=== PATIENT | female | born 1960 | race Caucasian/White ===

== ENCOUNTER 2018-07-20 03:07 | Inpatient (IN) | payer MEDICARE ==
[~2018-07-20] VITALS: Ht 157.5 cm; Wt 64.9 kg
[2018-07-20] VITALS (22 sets, daily range): BP systolic 70–120; BP diastolic 44–74
[~2018-07-20 03:07] MED LIST: ACET-2178 MT; AMLO10TA80 MT; ASPI-1158 MT; CLON0.1T MT; DIPH25CA83 MT; MEGE40TA27 MT; NITR-87 PO; PROT40 MT; SUCR1TAB30 MT
[2018-07-20] MEDS ORDERED: SODIUM CHLORIDE 0.9% 1000ML BAG (SEPSIS BOLUS) IV ONE (03:15)
[2018-07-20] MEDS ORDERED: VANCOMYCIN 1 G PREMIX 200 ML IV ONE (03:15)
[2018-07-20] MEDS ORDERED: PIPERACILLIN/TAZ 3.375G PREMIX 50 ML IV ONE (03:15)
[2018-07-20 04:02] LABS: BG BASE EXCESS -14.4 mmol/L (-2.0-2.0); BG BILEVEL POS AIRWAY PRESSURE 15/5; BG CARBOXYHEMOGLOBIN 0.7 % (0.5-1.5); BG DEOXYHEMOGLOBIN 1.5 % (0.0-5.0); BG FRACTION INSPIRED OXYGEN 75; BG HCO3 ACT 10.2 mmol/L (22.0-26.0); BG METHEMOGLOBIN 0.3 % (0.0-1.5); BG OXYGEN SATURATION 98.5 % (92.0-98.5); BG OXYHEMOGLOBIN 97.5 % (94.0-97.0); BG PCO2 20.6 mmHg (35.0-45.0); BG PH 7.312 (7.350-7.450); BG PO2 117.3 mmHg (75.0-100.0); BG SAMPLE SITE RIGHT RADIAL; BG VENT MODE MASK - BIPAP
[2018-07-20] MEDS ORDERED: KETOROLAC 15MG/ML VIAL IV ONE (04:15)
[2018-07-20 04:26] LABS: HEMATOCRIT. 27.1 % (36.0-48.0); HEMOGLOBIN. 8.3 g/dL (12.0-16.0); MEAN CORPUSCULAR HEMOGLOBIN 27.1 pg (28.0-32.0); MEAN PLATELET VOLUME 8.9 fl (7.4-10.4); PLATELET 620 x1000/uL (130-400); RED BLOOD CELL COUNT 3.08 mill/uL (4.2-5.4); RED CELL DISTRIBUTION WIDTH 16.7 % (11.6-14.6)
[2018-07-20 04:33] LABS: CHLORIDE 96 mEq/L (98-107)
[2018-07-20 04:35] LABS: PROTHROMBIN TIME 10.5 sec (9.1-11.1)
[2018-07-20] MEDS ORDERED: DEXTROSE 50% WATER 50ML SYRINGE IV ONE (04:45)
[2018-07-20] MEDS ORDERED: SODIUM POLYSTYRENE SULFONATE 15 G/60 ML BOT PO ONE (04:45)
[2018-07-20] MEDS ORDERED: SODIUM BICARBONATE 8.4% 1 MEQ/ML 50ML SYR IV ONE (04:45)
[2018-07-20] MEDS ORDERED: INSULIN REGULAR (HUMULIN R) 300UNITS/3ML IV ONE (04:45)
[2018-07-20] MEDS ORDERED: ALBUTEROL (0.083%) 2.5MG/3ML NEB HHN ONE (04:45)
[2018-07-20] MEDS ORDERED: ALBUTEROL (0.5%) 2.5MG/0.5ML NEB HHN ONE (04:58)
[2018-07-20 05:36] LABS: PLATELET ESTIMATE INCREASED
[2018-07-20] MEDS ORDERED: NOREPINEPHRINE 4 MG in DEXT 5% WATER 246 ML IV ONE ×4 (05:45)
[2018-07-20] MEDS: DEXT 5%/0.45% NACL 1000ML 1,000 ML IV SCH ×2 (07:08→20:55)
[2018-07-20 07:31] LABS: CLARITY URINE TURBID (CLEAR); COLOR URINE ORANGE (YELLOW); KETONES URINE NEGATIVE (NEGATIVE); LEUKOCYTE ESTERASE URINE 3+ (NEGATIVE); NITRITE URINE NEGATIVE (NEGATIVE); OCCULT BLOOD URINE 3+ (NEGATIVE); PH URINE 6.5 (4.5-8.0); PROTEIN URINE 2+ (NEGATIVE); SPECIFIC GRAVITY URINE 1.011 (1.005-1.030); UROBILINOGEN URINE 0.2 E.U./dL (0.2-1.0)
[2018-07-20] MEDS ORDERED: LIDOCAINE HCL 1% 10 MG/ML 10ML VIAL ONE (11:01)
[2018-07-20] MEDS ORDERED: PIPERACILLIN/TAZ 2.25G PREMIX 50 ML IV NR (12:00)
[2018-07-20] MEDS: MIDODRINE HCL 5MG TABLET PO SCH (14:45)
[2018-07-20] MEDS ORDERED: ONDANSETRON HCL 4MG/2ML INJ IV PRN (17:00)
[2018-07-20] MEDS ORDERED: NOREPINEPHRINE 4 MG in DEXT 5% WATER 246 ML IV PRN (19:00)
[2018-07-20] MEDS: NOREPINEPHRINE 4 MG in DEXT 5% WATER 246 ML IV PRN (19:01)
[2018-07-20] MEDS ORDERED: SODIUM CHLORIDE 0.9% 1,000 ML IV NR (19:08)
[2018-07-20] MEDS: PIPERACILLIN/TAZ 2.25G PREMIX 50 ML IV SCH (21:46)
[2018-07-21] VITALS (142 sets, daily range): BP systolic 72–134; BP diastolic 41–75
[2018-07-21] MEDS: DEXT 5%/0.45% NACL 1000ML 1,000 ML IV SCH (03:08)
[2018-07-21] MEDS: PIPERACILLIN/TAZ 2.25G PREMIX 50 ML IV SCH ×2 (05:03→11:25)
[2018-07-21] MEDS: NOREPINEPHRINE 4 MG in DEXT 5% WATER 246 ML IV PRN ×2 (05:32→16:30)
[2018-07-21 06:24] LABS: HEMATOCRIT. 29.4 % (36.0-48.0); HEMOGLOBIN. 9.1 g/dL (12.0-16.0); MEAN CORPUSCULAR HEMOGLOBIN 27.4 pg (28.0-32.0); MEAN CORPUSCULAR VOLUME 88.6 fL (81.0-99.0); MEAN PLATELET VOLUME 9.2 fl (7.4-10.4); PLATELET 595 x1000/uL (130-400); RED BLOOD CELL COUNT 3.32 mill/uL (4.2-5.4); RED CELL DISTRIBUTION WIDTH 16.7 % (11.6-14.6)
[2018-07-21 06:48] LABS: CHLORIDE 96 mEq/L (98-107)
[2018-07-21] MEDS ORDERED: DEXTROSE 50% WATER 50ML SYRINGE IV PRN (07:15)
[2018-07-21] MEDS ORDERED: SODIUM BICARBONATE 8.4% 1 MEQ/ML 50ML SYR IV SCH (07:20)
[2018-07-21 07:39] LABS: PLATELET ESTIMATE INCREASED
[2018-07-21] MEDS ORDERED: SODIUM POLYSTYRENE SULFONATE 15 G/60 ML BOT PR SCH (08:30)
[2018-07-21 09:32] LABS: BG BASE EXCESS -7.5 mmol/L (-2.0-2.0); BG BILEVEL POS AIRWAY PRESSURE 15/5; BG CARBOXYHEMOGLOBIN 0.5 % (0.5-1.5); BG DEOXYHEMOGLOBIN 8.5 % (0.0-5.0); BG HCO3 ACT 16.7 mmol/L (22.0-26.0); BG METHEMOGLOBIN 0.3 % (0.0-1.5); BG OXYGEN SATURATION 91.4 % (92.0-98.5); BG OXYHEMOGLOBIN 90.7 % (94.0-97.0); BG PCO2 29.1 mmHg (35.0-45.0); BG PH 7.377 (7.350-7.450); BG PO2 57.7 mmHg (75.0-100.0); BG SAMPLE SITE RIGHT RADIAL; BG TOTAL HEMOGLOBIN 9.3 g/dL (12.0-18.0); BG VENT MODE MASK - BIPAP; BG VENT RATE 14 set
[2018-07-21] MEDS ORDERED: VECURONIUM BROMIDE 10 MG/VIAL IV ONE (09:45)
[2018-07-21] MEDS ORDERED: NORMAL SALINE 0.9% 10 ML SYR ONE (09:45)
[2018-07-21] MEDS ORDERED: ETOMIDATE 2MG/ML 10ML VIAL IV ONE (09:45)
[2018-07-21] MEDS ORDERED: IPRATROPIUM/ALBUTEROL 0.5-3(2.5)MG/3ML NEB HHN PRN (09:45)
[2018-07-21] MEDS ORDERED: PROPOFOL 10MG/ML 100ML 100 ML IV PRN (09:45)
[2018-07-21] MEDS: PANTOPRAZOLE SODIUM 40 MG/VIAL IV SCH (10:15)
[2018-07-21 10:35] LABS: BG BASE EXCESS -6.8 mmol/L (-2.0-2.0); BG CARBOXYHEMOGLOBIN 0.8 % (0.5-1.5); BG DEOXYHEMOGLOBIN 0.2 % (0.0-5.0); BG METHEMOGLOBIN 0.3 % (0.0-1.5); BG OXYGEN SATURATION 99.8 % (92.0-98.5); BG OXYHEMOGLOBIN 98.7 % (94.0-97.0); BG PCO2 33.3 mmHg (35.0-45.0); BG PO2 214.2 mmHg (75.0-100.0); BG SAMPLE SITE RIGHT RADIAL; BG TIDAL VOLUME(mL) 500 mL; BG TOTAL HEMOGLOBIN 9.4 g/dL (12.0-18.0); BG VENT MODE VENT - A/C; BG VENT RATE 16 set
[2018-07-21] MEDS: IPRATROPIUM/ALBUTEROL 0.5-3(2.5)MG/3ML NEB HHN SCH ×3 (11:00→19:55)
[2018-07-21] MEDS: SODIUM BICARBONATE 100 MEQ in SODIUM CHLORIDE 0.45% 1,000 ML IV SCH (11:25)
[2018-07-21] MEDS: BLOOD SUGAR DIAGNOSTIC STRIP TEST SCH ×3 (11:30→21:00)
[2018-07-21 11:56] LABS: SODIUM URINE RANDOM 35 mEq/L
[2018-07-21] MEDS: INSULIN LISPRO 100 UNITS/ML SUBCUT SCH ×3 (14:03→22:07)
[2018-07-21] MEDS: MIDODRINE HCL 5MG TABLET PO SCH ×2 (14:15→17:18)
[2018-07-21] MEDS ORDERED: VANCOMYCIN 500 MG PREMIX 100 ML IV SCH (15:00)
[2018-07-21] MEDS: ACETYLCYSTEINE 100MG/ML 10% VIAL 4ML INH SCH (15:20)
[2018-07-21] MEDS ORDERED: AMIKACIN SULFATE 500 MG in SODIUM CHLORIDE 0.9% 100 ML IV NR (17:00)
[2018-07-21] MEDS: MEROPENEM 1,000 MG in SODIUM CHLORIDE 0.9% 100 ML IV SCH (17:18)
[2018-07-21] MEDS: VANCOMYCIN HCL 1000 MG/20 ML ORAL PO SCH (17:27)
[2018-07-21] MEDS ORDERED: VANCOMYCIN 1 G PREMIX 200 ML IV NR (17:30)
[2018-07-21] MEDS: PROPOFOL 10MG/ML 100ML 100 ML IV PRN (20:27)
[2018-07-22] VITALS (89 sets, daily range): BP systolic 71–116; BP diastolic 45–67
[2018-07-22] MEDS: ACETYLCYSTEINE 100MG/ML 10% VIAL 4ML INH SCH ×2 (00:01→12:53)
[2018-07-22] MEDS: IPRATROPIUM/ALBUTEROL 0.5-3(2.5)MG/3ML NEB HHN SCH ×5 (00:01→20:40)
[2018-07-22] MEDS: VANCOMYCIN HCL 1000 MG/20 ML ORAL PO SCH ×4 (00:27→17:02)
[2018-07-22] MEDS: SODIUM BICARBONATE 100 MEQ in SODIUM CHLORIDE 0.45% 1,000 ML IV SCH ×2 (00:28→17:01)
[2018-07-22] MEDS: PROPOFOL 10MG/ML 100ML 100 ML IV PRN ×3 (03:21→22:04)
[2018-07-22] MEDS: NOREPINEPHRINE 4 MG in DEXT 5% WATER 246 ML IV PRN ×3 (03:22→23:14)
[2018-07-22 05:37] LABS: HEMATOCRIT. 25.6 % (36.0-48.0); HEMOGLOBIN. 8.2 g/dL (12.0-16.0); MEAN CORPUSCULAR HEMOGLOBIN 27.3 pg (28.0-32.0); MEAN CORPUSCULAR VOLUME 84.9 fL (81.0-99.0); MEAN PLATELET VOLUME 9.2 fl (7.4-10.4); PLATELET 372 x1000/uL (130-400); RED BLOOD CELL COUNT 3.02 mill/uL (4.2-5.4); RED CELL DISTRIBUTION WIDTH 16.4 % (11.6-14.6)
[2018-07-22 05:57] LABS: PHOSPHORUS 1.8 mg/dL (2.5-4.9)
[2018-07-22] MEDS: INSULIN LISPRO 100 UNITS/ML SUBCUT SCH ×4 (06:06→22:03)
[2018-07-22] MEDS: BLOOD SUGAR DIAGNOSTIC STRIP TEST SCH ×4 (06:06→21:00)
[2018-07-22 07:16] LABS: PLATELET ESTIMATE NORMAL
[2018-07-22] MEDS ORDERED: SODIUM PHOS,M-BASIC-D-BASIC 15 MM in DEXT 5% WATER 245 ML IV NR (08:15)
[2018-07-22 08:39] LABS: BG BASE EXCESS -8.6 mmol/L (-2.0-2.0); BG CARBOXYHEMOGLOBIN 1.2 % (0.5-1.5); BG DEOXYHEMOGLOBIN 10.8 % (0.0-5.0); BG FRACTION INSPIRED OXYGEN 50; BG HCO3 ACT 15.2 mmol/L (22.0-26.0); BG METHEMOGLOBIN 0.2 % (0.0-1.5); BG OXYHEMOGLOBIN 87.8 % (94.0-97.0); BG PCO2 25.4 mmHg (35.0-45.0); BG PH 7.395 (7.350-7.450); BG PO2 53.7 mmHg (75.0-100.0); BG SAMPLE SITE RIGHT RADIAL; BG TIDAL VOLUME(mL) 500 mL; BG TOTAL HEMOGLOBIN 7.7 g/dL (12.0-18.0); BG VENT MODE VENT - A/C; BG VENT RATE 16 set
[2018-07-22] MEDS: MEROPENEM 1,000 MG in SODIUM CHLORIDE 0.9% 100 ML IV SCH (08:52)
[2018-07-22] MEDS: PANTOPRAZOLE SODIUM 40 MG/VIAL IV SCH (08:53)
[2018-07-22] MEDS: MIDODRINE HCL 5MG TABLET PO SCH ×3 (08:54→17:01)
[2018-07-22] MEDS ORDERED: PROPOFOL 10MG/ML 100ML 100 ML IV PRN ×2 (12:27→15:45)
[2018-07-23] VITALS (93 sets, daily range): BP systolic 67–142; BP diastolic 41–66
[2018-07-23] MEDS: IPRATROPIUM/ALBUTEROL 0.5-3(2.5)MG/3ML NEB HHN SCH ×6 (00:13→20:22)
[2018-07-23] MEDS: ACETYLCYSTEINE 100MG/ML 10% VIAL 4ML INH SCH ×3 (00:14→16:03)
[2018-07-23] MEDS: VANCOMYCIN HCL 1000 MG/20 ML ORAL PO SCH ×4 (00:18→17:56)
[2018-07-23] MEDS: ACETAMINOPHEN 325MG TABLET PO PRN ×2 (00:39→04:49)
[2018-07-23 05:53] LABS: BG BASE EXCESS -3.9 mmol/L (-2.0-2.0); BG CARBOXYHEMOGLOBIN 1.1 % (0.5-1.5); BG DEOXYHEMOGLOBIN 11.9 % (0.0-5.0); BG FRACTION INSPIRED OXYGEN 100; BG HCO3 ACT 20.1 mmol/L (22.0-26.0); BG METHEMOGLOBIN 0.3 % (0.0-1.5); BG OXYGEN SATURATION 87.9 % (92.0-98.5); BG OXYHEMOGLOBIN 86.7 % (94.0-97.0); BG PCO2 31.7 mmHg (35.0-45.0); BG PH 7.419 (7.350-7.450); BG PO2 52.2 mmHg (75.0-100.0); BG SAMPLE SITE RIGHT RADIAL; BG TIDAL VOLUME(mL) 500 mL; BG TOTAL HEMOGLOBIN 8.2 g/dL (12.0-18.0); BG VENT MODE VENT - A/C; BG VENT RATE 16 set
[2018-07-23 06:01] LABS: HEMATOCRIT. 25.3 % (36.0-48.0); HEMOGLOBIN. 8.2 g/dL (12.0-16.0); MEAN CORPUSCULAR HEMOGLOBIN 27.4 pg (28.0-32.0); MEAN CORPUSCULAR VOLUME 84.9 fL (81.0-99.0); MEAN PLATELET VOLUME 9.4 fl (7.4-10.4); PLATELET 292 x1000/uL (130-400); RED BLOOD CELL COUNT 2.98 mill/uL (4.2-5.4); RED CELL DISTRIBUTION WIDTH 16.7 % (11.6-14.6)
[2018-07-23] MEDS: BLOOD SUGAR DIAGNOSTIC STRIP TEST SCH ×3 (06:27→17:56)
[2018-07-23] MEDS: SODIUM BICARBONATE 100 MEQ in SODIUM CHLORIDE 0.45% 1,000 ML IV SCH (06:31)
[2018-07-23] MEDS: INSULIN LISPRO 100 UNITS/ML SUBCUT SCH ×3 (06:33→17:56)
[2018-07-23 06:34] LABS: PHOSPHORUS 2.9 mg/dL (2.5-4.9)
[2018-07-23 08:18] LABS: PLATELET ESTIMATE NORMAL
[2018-07-23] MEDS: PANTOPRAZOLE SODIUM 40 MG/VIAL IV SCH (09:05)
[2018-07-23] MEDS: MIDODRINE HCL 5MG TABLET PO SCH ×3 (09:05→17:55)
[2018-07-23] MEDS: MEROPENEM 1,000 MG in SODIUM CHLORIDE 0.9% 100 ML IV SCH (09:05)
[2018-07-23] MEDS: PROPOFOL 10MG/ML 100ML 100 ML IV PRN ×2 (09:05→19:03)
[2018-07-23] MEDS: NOREPINEPHRINE 4 MG in DEXT 5% WATER 246 ML IV PRN ×2 (15:14→23:20)
[2018-07-23 15:20] LABS: BG BASE EXCESS -5.1 mmol/L (-2.0-2.0); BG FRACTION INSPIRED OXYGEN 100; BG HCO3 ACT 17.6 mmol/L (22.0-26.0); BG METHEMOGLOBIN 0.3 % (0.0-1.5); BG OXYHEMOGLOBIN 97.7 % (94.0-97.0); BG PCO2 24.5 mmHg (35.0-45.0); BG PH 7.474 (7.350-7.450); BG PO2 142.6 mmHg (75.0-100.0); BG SAMPLE SITE LEFT RADIAL; BG TIDAL VOLUME(mL) 500 mL; BG TOTAL HEMOGLOBIN 8.1 g/dL (12.0-18.0); BG VENT MODE VENT - A/C; BG VENT RATE 16 set
[2018-07-24] VITALS (88 sets, daily range): BP systolic 78–146; BP diastolic 47–94
[2018-07-24] MEDS: VANCOMYCIN HCL 1000 MG/20 ML ORAL PO SCH ×5 (00:22→23:57)
[2018-07-24] MEDS: BLOOD SUGAR DIAGNOSTIC STRIP TEST SCH ×5 (00:22→23:57)
[2018-07-24] MEDS: INSULIN LISPRO 100 UNITS/ML SUBCUT SCH ×4 (00:25→17:44)
[2018-07-24] MEDS: ACETYLCYSTEINE 100MG/ML 10% VIAL 4ML INH SCH ×3 (00:28→15:46)
[2018-07-24] MEDS: IPRATROPIUM/ALBUTEROL 0.5-3(2.5)MG/3ML NEB HHN SCH ×5 (00:28→20:32)
[2018-07-24] MEDS: PROPOFOL 10MG/ML 100ML 100 ML IV PRN ×2 (04:38→15:27)
[2018-07-24 05:34] LABS: HEMOGLOBIN. 7.8 g/dL (12.0-16.0); MEAN CORPUSCULAR HEMOGLOBIN 27.4 pg (28.0-32.0); MEAN PLATELET VOLUME 9.3 fl (7.4-10.4); PLATELET 255 x1000/uL (130-400); RED BLOOD CELL COUNT 2.85 mill/uL (4.2-5.4); RED CELL DISTRIBUTION WIDTH 16.5 % (11.6-14.6)
[2018-07-24] MEDS: NOREPINEPHRINE 4 MG in DEXT 5% WATER 246 ML IV PRN (07:21)
[2018-07-24 07:45] LABS: PLATELET ESTIMATE NORMAL
[2018-07-24 08:47] LABS: BG BASE EXCESS -4.5 mmol/L (-2.0-2.0); BG DEOXYHEMOGLOBIN 2.1 % (0.0-5.0); BG METHEMOGLOBIN 0.3 % (0.0-1.5); BG OXYGEN SATURATION 97.9 % (92.0-98.5); BG OXYHEMOGLOBIN 96.6 % (94.0-97.0); BG PCO2 28.4 mmHg (35.0-45.0); BG PH 7.444 (7.350-7.450); BG PO2 101.6 mmHg (75.0-100.0); BG SAMPLE SITE RIGHT RADIAL; BG TIDAL VOLUME(mL) 500 mL; BG TOTAL HEMOGLOBIN 7.4 g/dL (12.0-18.0); BG VENT MODE VENT - A/C; BG VENT RATE 16 set
[2018-07-24] MEDS: FAMOTIDINE 20MG/2ML VIAL IV SCH (09:28)
[2018-07-24] MEDS: MEROPENEM 1,000 MG in SODIUM CHLORIDE 0.9% 100 ML IV SCH (09:28)
[2018-07-24] MEDS: MIDODRINE HCL 5MG TABLET PO SCH ×3 (09:28→17:21)
[2018-07-24] MEDS ORDERED: VANCOMYCIN 500 MG PREMIX 100 ML IV SCH (11:00)
[2018-07-24] MEDS ORDERED: LIDOCAINE HCL/PF 1% 2ML VIAL ONE (11:22)
[2018-07-24] MEDS: METOCLOPRAMIDE HCL 10MG/2ML VIAL IV SCH ×3 (11:59→23:56)
[2018-07-24] MEDS: NOREPINEPHRINE 16 MG in DEXT 5% WATER 234 ML IV PRN (15:15)
[2018-07-24] MEDS ORDERED: PROPOFOL 10MG/ML 100ML 100 ML IV PRN (18:41)
[2018-07-25] VITALS (83 sets, daily range): BP systolic 78–114; BP diastolic 33–69
[2018-07-25] MEDS: ACETYLCYSTEINE 100MG/ML 10% VIAL 4ML INH SCH ×4 (00:02→20:01)
[2018-07-25] MEDS: IPRATROPIUM/ALBUTEROL 0.5-3(2.5)MG/3ML NEB HHN SCH ×6 (00:02→20:00)
[2018-07-25] MEDS: INSULIN LISPRO 100 UNITS/ML SUBCUT SCH ×4 (00:06→17:26)
[2018-07-25 05:38] LABS: HEMATOCRIT. 23.8 % (36.0-48.0); HEMOGLOBIN. 7.7 g/dL (12.0-16.0); MEAN CORPUSCULAR HEMOGLOBIN 27.1 pg (28.0-32.0); MEAN CORPUSCULAR VOLUME 84.2 fL (81.0-99.0); MEAN PLATELET VOLUME 9.3 fl (7.4-10.4); PLATELET 223 x1000/uL (130-400); RED BLOOD CELL COUNT 2.83 mill/uL (4.2-5.4); RED CELL DISTRIBUTION WIDTH 16.6 % (11.6-14.6)
[2018-07-25] MEDS: BLOOD SUGAR DIAGNOSTIC STRIP TEST SCH ×3 (06:00→17:15)
[2018-07-25] MEDS: METOCLOPRAMIDE HCL 10MG/2ML VIAL IV SCH ×3 (06:41→17:26)
[2018-07-25] MEDS: VANCOMYCIN HCL 1000 MG/20 ML ORAL PO SCH ×3 (06:45→17:26)
[2018-07-25 07:46] LABS: BG CARBOXYHEMOGLOBIN 1.6 % (0.5-1.5); BG DEOXYHEMOGLOBIN 9.5 % (0.0-5.0); BG FRACTION INSPIRED OXYGEN 40; BG HCO3 ACT 17.4 mmol/L (22.0-26.0); BG METHEMOGLOBIN 0.2 % (0.0-1.5); BG OXYGEN SATURATION 90.3 % (92.0-98.5); BG OXYHEMOGLOBIN 88.7 % (94.0-97.0); BG PCO2 26.4 mmHg (35.0-45.0); BG PH 7.437 (7.350-7.450); BG SAMPLE SITE RIGHT RADIAL; BG TIDAL VOLUME(mL) 500 mL; BG TOTAL HEMOGLOBIN 7.5 g/dL (12.0-18.0); BG VENT MODE VENT - A/C; BG VENT RATE 12 set
[2018-07-25] MEDS: MEROPENEM 1,000 MG in SODIUM CHLORIDE 0.9% 100 ML IV SCH (08:49)
[2018-07-25] MEDS: ACETAMINOPHEN 325MG TABLET PO PRN ×2 (08:49→21:59)
[2018-07-25] MEDS: FAMOTIDINE 20MG/2ML VIAL IV SCH (08:49)
[2018-07-25] MEDS: MIDODRINE HCL 5MG TABLET PO SCH ×3 (08:49→17:25)
[2018-07-25 09:18] LABS: PLATELET ESTIMATE NORMAL
[2018-07-25] MEDS ORDERED: FENTANYL CITRATE/PF 500 MCG in SODIUM CHLORIDE 0.9% 40 ML IV PRN (09:45)
[2018-07-25] MEDS ORDERED: MIDAZOLAM HCL 100 MG in DEXT 5% WATER 80 ML IV PRN (09:45)
[2018-07-25] MEDS: NOREPINEPHRINE 16 MG in DEXT 5% WATER 234 ML IV PRN (17:06)
[2018-07-26] VITALS (84 sets, daily range): BP systolic 86–132; BP diastolic 50–87
[2018-07-26] MEDS: BLOOD SUGAR DIAGNOSTIC STRIP TEST SCH ×4 (00:10→17:57)
[2018-07-26] MEDS: IPRATROPIUM/ALBUTEROL 0.5-3(2.5)MG/3ML NEB HHN SCH ×7 (00:15→23:57)
[2018-07-26] MEDS: METOCLOPRAMIDE HCL 10MG/2ML VIAL IV SCH ×4 (00:18→17:57)
[2018-07-26] MEDS: VANCOMYCIN HCL 1000 MG/20 ML ORAL PO SCH ×4 (00:18→17:57)
[2018-07-26] MEDS: INSULIN LISPRO 100 UNITS/ML SUBCUT SCH ×4 (00:19→17:58)
[2018-07-26 05:34] LABS: BASOPHILS % 0.3 % (0.0-2.0); EOSINOPHILS % 0.1 % (0.0-5.0); HEMATOCRIT. 23.9 % (36.0-48.0); HEMOGLOBIN. 7.4 g/dL (12.0-16.0); MEAN CORPUSCULAR HEMOGLOBIN 26.9 pg (28.0-32.0); MEAN CORPUSCULAR VOLUME 86.1 fL (81.0-99.0); MEAN PLATELET VOLUME 9.4 fl (7.4-10.4); MONOCYTES % 3.7 % (2.0-8.0); NEUTROPHILS % 86.9 % (40.0-76.0); PLATELET 180 x1000/uL (130-400); RED BLOOD CELL COUNT 2.77 mill/uL (4.2-5.4); RED CELL DISTRIBUTION WIDTH 16.2 % (11.6-14.6)
[2018-07-26 05:53] LABS: CHLORIDE 100 mEq/L (98-107)
[2018-07-26] MEDS: ACETYLCYSTEINE 100MG/ML 10% VIAL 4ML INH SCH ×2 (08:30→16:33)
[2018-07-26] MEDS: FAMOTIDINE 20MG/2ML VIAL IV SCH (08:51)
[2018-07-26] MEDS: MIDODRINE HCL 5MG TABLET PO SCH ×3 (08:52→17:57)
[2018-07-26] MEDS: MEROPENEM 1,000 MG in SODIUM CHLORIDE 0.9% 100 ML IV SCH (08:52)
[2018-07-26 09:18] LABS: BG BASE EXCESS -6.6 mmol/L (-2.0-2.0); BG CARBOXYHEMOGLOBIN 0.9 % (0.5-1.5); BG DEOXYHEMOGLOBIN 0.5 % (0.0-5.0); BG FRACTION INSPIRED OXYGEN 45; BG HCO3 ACT 17.8 mmol/L (22.0-26.0); BG METHEMOGLOBIN 0.3 % (0.0-1.5); BG OXYGEN SATURATION 99.5 % (92.0-98.5); BG OXYHEMOGLOBIN 98.3 % (94.0-97.0); BG PCO2 30.3 mmHg (35.0-45.0); BG PH 7.386 (7.350-7.450); BG PO2 219.1 mmHg (75.0-100.0); BG SAMPLE SITE RIGHT RADIAL; BG TIDAL VOLUME(mL) 450 mL; BG TOTAL HEMOGLOBIN 6.9 g/dL (12.0-18.0); BG VENT MODE VENT - A/C; BG VENT RATE 12 set
[2018-07-26] MEDS ORDERED: KCL 20MEQ/100ML PREMIX 100 ML IV ONE (10:30)
[2018-07-26] MEDS: NOREPINEPHRINE 16 MG in DEXT 5% WATER 234 ML IV PRN (20:54)
[2018-07-27] VITALS (101 sets, daily range): BP systolic 68–133; BP diastolic 42–78
[2018-07-27] MEDS: BLOOD SUGAR DIAGNOSTIC STRIP TEST SCH ×5 (00:07→23:49)
[2018-07-27] MEDS: METOCLOPRAMIDE HCL 10MG/2ML VIAL IV SCH ×5 (00:10→23:59)
[2018-07-27] MEDS: VANCOMYCIN HCL 1000 MG/20 ML ORAL PO SCH ×5 (00:11→23:59)
[2018-07-27] MEDS: INSULIN LISPRO 100 UNITS/ML SUBCUT SCH ×5 (00:21→23:49)
[2018-07-27] MEDS: IPRATROPIUM/ALBUTEROL 0.5-3(2.5)MG/3ML NEB HHN SCH ×5 (03:41→20:26)
[2018-07-27 07:15] LABS: MEAN CORPUSCULAR HEMOGLOBIN 26.8 pg (28.0-32.0); MEAN CORPUSCULAR VOLUME 83.8 fL (81.0-99.0); MEAN PLATELET VOLUME 9.5 fl (7.4-10.4); PLATELET 168 x1000/uL (130-400); RED BLOOD CELL COUNT 2.46 mill/uL (4.2-5.4)
[2018-07-27 07:20] LABS: HEMOGLOBIN. 6.6 g/dL (12.0-16.0)
[2018-07-27 07:21] LABS: HEMATOCRIT. 20.6 % (36.0-48.0)
[2018-07-27] MEDS ORDERED: ALBUMIN HUMAN 12.5G/250ML (5%) IV SCH (07:30)
[2018-07-27] MEDS: MEROPENEM 1,000 MG in SODIUM CHLORIDE 0.9% 100 ML IV SCH (08:34)
[2018-07-27] MEDS: FAMOTIDINE 20MG/2ML VIAL IV SCH (08:34)
[2018-07-27] MEDS: MIDODRINE HCL 5MG TABLET PO SCH ×3 (08:34→17:00)
[2018-07-27 10:35] LABS: PLATELET ESTIMATE NORMAL
[2018-07-28] VITALS (91 sets, daily range): BP systolic 73–121; BP diastolic 46–78
[2018-07-28] MEDS: IPRATROPIUM/ALBUTEROL 0.5-3(2.5)MG/3ML NEB HHN SCH ×6 (00:26→21:13)
[2018-07-28] MEDS: BLOOD SUGAR DIAGNOSTIC STRIP TEST SCH ×3 (05:44→17:39)
[2018-07-28] MEDS: VANCOMYCIN HCL 1000 MG/20 ML ORAL PO SCH ×3 (05:47→17:47)
[2018-07-28] MEDS: METOCLOPRAMIDE HCL 10MG/2ML VIAL IV SCH ×3 (05:47→17:47)
[2018-07-28] MEDS: INSULIN LISPRO 100 UNITS/ML SUBCUT SCH ×3 (05:49→17:48)
[2018-07-28] MEDS: MEROPENEM 1,000 MG in SODIUM CHLORIDE 0.9% 100 ML IV SCH (09:01)
[2018-07-28] MEDS: NOREPINEPHRINE 16 MG in DEXT 5% WATER 234 ML IV PRN (09:01)
[2018-07-28] MEDS: MIDODRINE HCL 5MG TABLET PO SCH ×3 (09:02→17:46)
[2018-07-28] MEDS: FAMOTIDINE 20MG/2ML VIAL IV SCH (09:02)
[2018-07-28 09:42] LABS: HEMATOCRIT. 26.9 % (36.0-48.0); HEMOGLOBIN. 8.9 g/dL (12.0-16.0); MEAN CORPUSCULAR HEMOGLOBIN 28.3 pg (28.0-32.0); MEAN CORPUSCULAR VOLUME 85.5 fL (81.0-99.0); MEAN PLATELET VOLUME 9.9 fl (7.4-10.4); PLATELET 186 x1000/uL (130-400); RED BLOOD CELL COUNT 3.15 mill/uL (4.2-5.4); RED CELL DISTRIBUTION WIDTH 15.3 % (11.6-14.6)
[2018-07-28 11:23] LABS: BG BASE EXCESS -4.3 mmol/L (-2.0-2.0); BG CARBOXYHEMOGLOBIN 0.6 % (0.5-1.5); BG DEOXYHEMOGLOBIN 0.9 % (0.0-5.0); BG FRACTION INSPIRED OXYGEN 45; BG HCO3 ACT 18.4 mmol/L (22.0-26.0); BG OXYGEN SATURATION 99.1 % (92.0-98.5); BG OXYHEMOGLOBIN 98.5 % (94.0-97.0); BG PCO2 25.8 mmHg (35.0-45.0); BG PH 7.471 (7.350-7.450); BG PO2 205.8 mmHg (75.0-100.0); BG PRESSURE SUPPORT 8; BG SAMPLE SITE RIGHT RADIAL; BG VENT MODE VENT - CPAP
[2018-07-28 13:53] LABS: NUCLEATED RED BLOOD CELLS 1 /100 WBC; PLATELET ESTIMATE NORMAL
[2018-07-28] MEDS: METRONIDAZOLE 500 MG PREMIX 100 ML IV SCH ×2 (15:08→23:10)
[2018-07-29] VITALS (72 sets, daily range): BP systolic 73–117; BP diastolic 43–68
[2018-07-29] MEDS: IPRATROPIUM/ALBUTEROL 0.5-3(2.5)MG/3ML NEB HHN SCH ×6 (00:52→22:08)
[2018-07-29] MEDS: METOCLOPRAMIDE HCL 10MG/2ML VIAL IV SCH ×4 (01:24→18:34)
[2018-07-29] MEDS: INSULIN LISPRO 100 UNITS/ML SUBCUT SCH ×4 (01:25→18:35)
[2018-07-29] MEDS: VANCOMYCIN HCL 1000 MG/20 ML ORAL PO SCH ×4 (01:26→18:35)
[2018-07-29 05:23] LABS: HEMATOCRIT. 24.7 % (36.0-48.0); MEAN PLATELET VOLUME 9.8 fl (7.4-10.4); PLATELET 201 x1000/uL (130-400); RED BLOOD CELL COUNT 2.87 mill/uL (4.2-5.4); RED CELL DISTRIBUTION WIDTH 15.5 % (11.6-14.6)
[2018-07-29] MEDS: BLOOD SUGAR DIAGNOSTIC STRIP TEST SCH ×4 (06:43→18:01)
[2018-07-29 07:33] LABS: PLATELET ESTIMATE NORMAL
[2018-07-29] MEDS ORDERED: ACETAMINOPHEN 650MG/20.3ML UDC NG PRN (08:15)
[2018-07-29] MEDS: NOREPINEPHRINE 16 MG in DEXT 5% WATER 234 ML IV PRN (08:26)
[2018-07-29] MEDS: METRONIDAZOLE 500 MG PREMIX 100 ML IV SCH ×2 (08:27→22:43)
[2018-07-29] MEDS: MIDODRINE HCL 5MG TABLET PO SCH ×3 (08:27→17:27)
[2018-07-29] MEDS: FAMOTIDINE 20MG/2ML VIAL IV SCH (08:27)
[2018-07-29] MEDS ORDERED: MEROPENEM 1,000 MG in SODIUM CHLORIDE 0.9% 100 ML IV SCH (09:00)
[2018-07-29 09:15] LABS: BG BASE EXCESS -5.8 mmol/L (-2.0-2.0); BG CARBOXYHEMOGLOBIN 0.5 % (0.5-1.5); BG DEOXYHEMOGLOBIN 3.3 % (0.0-5.0); BG HCO3 ACT 17.6 mmol/L (22.0-26.0); BG METHEMOGLOBIN 0.3 % (0.0-1.5); BG OXYGEN SATURATION 96.7 % (92.0-98.5); BG OXYHEMOGLOBIN 95.9 % (94.0-97.0); BG PCO2 26.7 mmHg (35.0-45.0); BG PH 7.436 (7.350-7.450); BG PO2 89.9 mmHg (75.0-100.0); BG SAMPLE SITE RIGHT RADIAL; BG TOTAL HEMOGLOBIN 8.2 g/dL (12.0-18.0); BG VENT MODE MASK - AEROSOL
[2018-07-29] MEDS ORDERED: TRAMADOL 50MG TABLET PO PRN (09:45)
[2018-07-29] MEDS: MEROPENEM 1,000 MG in SODIUM CHLORIDE 0.9% 100 ML IV SCH (16:04)
[2018-07-29] MEDS ORDERED: VANCOMYCIN 1 G PREMIX 200 ML IV SCH (16:30)
[2018-07-29] MEDS ORDERED: CEFTAZIDIME PENTAHYDRATE 1 G in DEXTROSE 5% WATER 50 ML IV SCH (21:00)
[2018-07-30] VITALS (8 sets, daily range): BP systolic 82–108; BP diastolic 52–60
[2018-07-30] MEDS: METOCLOPRAMIDE HCL 10MG/2ML VIAL IV SCH ×4 (00:56→17:27)
[2018-07-30] MEDS: MORPHINE SULFATE 4 MG/ML CPJ (NOT FOR IM USE) IV PRN (00:57)
[2018-07-30] MEDS: VANCOMYCIN HCL 1000 MG/20 ML ORAL PO SCH ×4 (01:12→17:27)
[2018-07-30] MEDS: IPRATROPIUM/ALBUTEROL 0.5-3(2.5)MG/3ML NEB HHN SCH ×6 (01:29→21:33)
[2018-07-30] MEDS: BLOOD SUGAR DIAGNOSTIC STRIP TEST SCH ×4 (06:53→17:34)
[2018-07-30] MEDS: INSULIN LISPRO 100 UNITS/ML SUBCUT SCH ×4 (07:01→17:39)
[2018-07-30 07:04] LABS: HEMATOCRIT. 23.4 % (36.0-48.0); HEMOGLOBIN. 7.6 g/dL (12.0-16.0); MEAN CORPUSCULAR HEMOGLOBIN 28.4 pg (28.0-32.0); MEAN CORPUSCULAR VOLUME 87.4 fL (81.0-99.0); MEAN PLATELET VOLUME 10.1 fl (7.4-10.4); PLATELET 220 x1000/uL (130-400); RED BLOOD CELL COUNT 2.67 mill/uL (4.2-5.4)
[2018-07-30 07:12] LABS: PHOSPHORUS 5.1 mg/dL (2.5-4.9)
[2018-07-30] MEDS: FAMOTIDINE 20MG/2ML VIAL IV SCH (08:28)
[2018-07-30] MEDS: METRONIDAZOLE 500 MG PREMIX 100 ML IV SCH ×2 (08:30→21:32)
[2018-07-30] MEDS: MIDODRINE HCL 5MG TABLET PO SCH ×3 (09:01→17:26)
[2018-07-30 09:05] LABS: PLATELET ESTIMATE NORMAL
[2018-07-30] MEDS: MEROPENEM 1,000 MG in SODIUM CHLORIDE 0.9% 100 ML IV SCH (15:04)
[2018-07-31] MEDS: METOCLOPRAMIDE HCL 10MG/2ML VIAL IV SCH ×5 (00:29→23:55)
[2018-07-31] MEDS: BLOOD SUGAR DIAGNOSTIC STRIP TEST SCH ×4 (00:29→17:17)
[2018-07-31] MEDS: INSULIN LISPRO 100 UNITS/ML SUBCUT SCH ×4 (00:48→17:14)
[2018-07-31] MEDS: IPRATROPIUM/ALBUTEROL 0.5-3(2.5)MG/3ML NEB HHN SCH ×7 (01:12→20:00)
[2018-07-31 04:00] VITALS: BP 94/49
[2018-07-31] MEDS: VANCOMYCIN HCL 1000 MG/20 ML ORAL PO SCH ×5 (06:32→23:55)
[2018-07-31] MEDS: MORPHINE SULFATE 4 MG/ML CPJ (NOT FOR IM USE) IV PRN (06:48)
[2018-07-31 07:39] LABS: HEMOGLOBIN. 7.1 g/dL (12.0-16.0); MEAN CORPUSCULAR HEMOGLOBIN 28.4 pg (28.0-32.0); MEAN CORPUSCULAR VOLUME 88.7 fL (81.0-99.0); PLATELET 286 x1000/uL (130-400); RED BLOOD CELL COUNT 2.48 mill/uL (4.2-5.4)
[2018-07-31 08:00] VITALS: BP 78/48
[2018-07-31 08:25] LABS: CHLORIDE 111 mEq/L (98-107)
[2018-07-31] MEDS: MIDODRINE HCL 5MG TABLET PO SCH ×3 (08:46→16:57)
[2018-07-31] MEDS: FAMOTIDINE 20MG/2ML VIAL IV SCH (08:46)
[2018-07-31] MEDS: METRONIDAZOLE 500 MG PREMIX 100 ML IV SCH (08:46)
[2018-07-31] MEDS: DEXT 5%/0.45% NACL 1000ML 1,000 ML IV SCH ×2 (10:37→23:55)
[2018-07-31 12:00] VITALS: BP 88/53
[2018-07-31] MEDS: MEROPENEM 1,000 MG in SODIUM CHLORIDE 0.9% 100 ML IV SCH (15:22)
[2018-07-31 15:35] LABS: PLATELET ESTIMATE NORMAL
[2018-07-31 16:00] VITALS: BP 85/51
[2018-07-31 20:00] VITALS: BP 88/48
[2018-08-01] VITALS: BP 93/58
[2018-08-01] MEDS: MORPHINE SULFATE 4 MG/ML CPJ (NOT FOR IM USE) IV PRN (00:02)
[2018-08-01] MEDS: BLOOD SUGAR DIAGNOSTIC STRIP TEST SCH ×5 (00:02→23:20)
[2018-08-01] MEDS: INSULIN LISPRO 100 UNITS/ML SUBCUT SCH ×5 (00:39→23:27)
[2018-08-01 04:00] VITALS: BP 91/52
[2018-08-01] MEDS: IPRATROPIUM/ALBUTEROL 0.5-3(2.5)MG/3ML NEB HHN SCH ×6 (04:39→21:39)
[2018-08-01] MEDS: METOCLOPRAMIDE HCL 10MG/2ML VIAL IV SCH ×4 (06:57→23:14)
[2018-08-01 07:04] LABS: HEMATOCRIT. 23.8 % (36.0-48.0); HEMOGLOBIN. 7.8 g/dL (12.0-16.0); MEAN CORPUSCULAR VOLUME 88.6 fL (81.0-99.0); MEAN PLATELET VOLUME 9.4 fl (7.4-10.4); PLATELET 355 x1000/uL (130-400); RED BLOOD CELL COUNT 2.68 mill/uL (4.2-5.4); RED CELL DISTRIBUTION WIDTH 16.6 % (11.6-14.6)
[2018-08-01 08:00] VITALS: BP 96/59
[2018-08-01] MEDS ORDERED: POTASSIUM CHLORIDE 20MEQ/PACKET PO NR (08:00)
[2018-08-01] MEDS: VANCOMYCIN HCL 1000 MG/20 ML ORAL PO SCH ×4 (08:36→23:15)
[2018-08-01] MEDS: FAMOTIDINE 20MG/2ML VIAL IV SCH (08:37)
[2018-08-01] MEDS: MIDODRINE HCL 5MG TABLET PO SCH ×4 (08:37→17:20)
[2018-08-01 12:00] VITALS: BP 113/59
[2018-08-01] MEDS: DEXT 5%/0.45% NACL 1000ML 1,000 ML IV SCH (12:44)
[2018-08-01 16:00] VITALS: BP 109/55
[2018-08-01 16:58] LABS: PLATELET ESTIMATE NORMAL
[2018-08-01] MEDS: MEROPENEM 1,000 MG in SODIUM CHLORIDE 0.9% 100 ML IV SCH (17:20)
[2018-08-01 20:00] VITALS: BP 98/59
[2018-08-01] MEDS: EPOETIN ALFA 10000UNITS/ML VIAL SUBCUT SCH (20:46)
[2018-08-02] VITALS: BP 105/66
[2018-08-02] MEDS: MORPHINE SULFATE 4 MG/ML CPJ (NOT FOR IM USE) IV PRN (00:50)
[2018-08-02 04:00] VITALS: BP 109/61
[2018-08-02] MEDS: IPRATROPIUM/ALBUTEROL 0.5-3(2.5)MG/3ML NEB HHN SCH ×6 (04:00→21:40)
[2018-08-02] MEDS: DEXT 5%/0.45% NACL 1000ML 1,000 ML IV SCH ×2 (04:24→15:50)
[2018-08-02] MEDS: METOCLOPRAMIDE HCL 10MG/2ML VIAL IV SCH ×3 (05:18→18:00)
[2018-08-02] MEDS: VANCOMYCIN HCL 1000 MG/20 ML ORAL PO SCH ×3 (05:21→18:00)
[2018-08-02] MEDS: BLOOD SUGAR DIAGNOSTIC STRIP TEST SCH ×3 (05:27→18:00)
[2018-08-02] MEDS: INSULIN LISPRO 100 UNITS/ML SUBCUT SCH ×3 (06:01→18:00)
[2018-08-02 07:41] LABS: BASOPHILS % 1.1 % (0.0-2.0); EOSINOPHILS % 1.8 % (0.0-5.0); HEMATOCRIT. 21.9 % (36.0-48.0); HEMOGLOBIN. 7.4 g/dL (12.0-16.0); LYMPHOCYTES % 9.4 % (20.0-50.0); MEAN CORPUSCULAR HEMOGLOBIN 29.8 pg (28.0-32.0); MEAN CORPUSCULAR VOLUME 88.6 fL (81.0-99.0); MEAN PLATELET VOLUME 9.3 fl (7.4-10.4); MONOCYTES % 5.3 % (2.0-8.0); NEUTROPHILS % 82.4 % (40.0-76.0); PLATELET 354 x1000/uL (130-400); RED BLOOD CELL COUNT 2.48 mill/uL (4.2-5.4); RED CELL DISTRIBUTION WIDTH 16.4 % (11.6-14.6)
[2018-08-02 08:00] VITALS: BP 104/60
[2018-08-02 08:50] LABS: PHOSPHORUS 4.7 mg/dL (2.5-4.9)
[2018-08-02] MEDS: MIDODRINE HCL 5MG TABLET PO SCH ×3 (09:07→17:00)
[2018-08-02] MEDS: FAMOTIDINE 20MG/2ML VIAL IV SCH (09:07)
[2018-08-02 12:00] VITALS: BP 107/62
[2018-08-02] MEDS ORDERED: POTASSIUM CHLORIDE INJ 40 MEQ in DEXT 5% WATER 500 ML IV SCH (12:00)
[2018-08-02] MEDS: MEROPENEM 1,000 MG in SODIUM CHLORIDE 0.9% 100 ML IV SCH (15:41)
[2018-08-02 16:00] VITALS: BP 101/58
[2018-08-02 20:00] VITALS: BP 97/56
[2018-08-03] VITALS: BP 91/55
[2018-08-03] MEDS: VANCOMYCIN HCL 1000 MG/20 ML ORAL PO SCH ×5 (00:22→23:41)
[2018-08-03] MEDS: METOCLOPRAMIDE HCL 10MG/2ML VIAL IV SCH ×5 (00:22→23:39)
[2018-08-03] MEDS: BLOOD SUGAR DIAGNOSTIC STRIP TEST SCH ×4 (00:29→17:16)
[2018-08-03] MEDS: INSULIN LISPRO 100 UNITS/ML SUBCUT SCH ×4 (00:39→17:16)
[2018-08-03] MEDS: IPRATROPIUM/ALBUTEROL 0.5-3(2.5)MG/3ML NEB HHN SCH ×3 (01:06→21:21)
[2018-08-03 04:00] VITALS: BP 103/65
[2018-08-03 07:41] LABS: HEMATOCRIT. 23.2 % (36.0-48.0); HEMOGLOBIN. 7.6 g/dL (12.0-16.0); MEAN CORPUSCULAR VOLUME 88.3 fL (81.0-99.0); MEAN PLATELET VOLUME 8.8 fl (7.4-10.4); PLATELET 355 x1000/uL (130-400); RED BLOOD CELL COUNT 2.63 mill/uL (4.2-5.4); RED CELL DISTRIBUTION WIDTH 16.9 % (11.6-14.6)
[2018-08-03 08:00] VITALS: BP 98/59
[2018-08-03] MEDS: FAMOTIDINE 20MG/2ML VIAL IV SCH (09:00)
[2018-08-03] MEDS: MIDODRINE HCL 5MG TABLET PO SCH ×3 (09:00→17:00)
[2018-08-03 14:24] LABS: ATYPICAL LYMPHOCYTES 2
[2018-08-03 14:27] LABS: PLATELET ESTIMATE NORMAL
[2018-08-03] MEDS: MEROPENEM 1,000 MG in SODIUM CHLORIDE 0.9% 100 ML IV SCH (15:10)
[2018-08-03] MEDS: DEXT 5%/0.45% NACL 1000ML 1,000 ML IV SCH (18:30)
[2018-08-03 20:00] VITALS: BP 95/60
[2018-08-03] MEDS: EPOETIN ALFA 10000UNITS/ML VIAL SUBCUT SCH (23:39)
[2018-08-04] VITALS: BP 90/60
[2018-08-04] MEDS: DEXT 5%/0.45% NACL 1000ML 1,000 ML IV SCH (00:43)
[2018-08-04] MEDS: INSULIN LISPRO 100 UNITS/ML SUBCUT SCH ×4 (00:50→18:00)
[2018-08-04] MEDS: IPRATROPIUM/ALBUTEROL 0.5-3(2.5)MG/3ML NEB HHN SCH ×5 (01:35→16:00)
[2018-08-04 05:01] VITALS: BP 100/64
[2018-08-04] MEDS: BLOOD SUGAR DIAGNOSTIC STRIP TEST SCH ×4 (06:00→18:00)
[2018-08-04 08:00] VITALS: BP 106/68
[2018-08-04] MEDS: VANCOMYCIN HCL 1000 MG/20 ML ORAL PO SCH ×3 (08:00→18:00)
[2018-08-04] MEDS: METOCLOPRAMIDE HCL 10MG/2ML VIAL IV SCH ×3 (08:12→18:00)
[2018-08-04] MEDS: FAMOTIDINE 20MG/2ML VIAL IV SCH (10:05)
[2018-08-04] MEDS: MIDODRINE HCL 5MG TABLET PO SCH ×3 (10:05→17:00)
[2018-08-04 12:00] VITALS: BP 101/62
[2018-08-04 16:00] VITALS: BP 107/67
[2018-08-04 20:00] VITALS: BP 101/65
== END 2018-08-04 20:50 | DRG 870 ==
LOC: ER 03:07 → MICUSO 05:43 → EDBEDREQSVC 05:46 → EDBEDREQ 05:46 → EDBEDREQTM 05:46 → ENRESERV 16:49 → EDBEDREQ 17:00 → EDBEDREQTM 17:00 → EDBEDREQ 17:03 → 6EST 07-29 19:06
PROVIDERS: ADMIT Hospitalist; ATTEND Hospitalist
PROC: 02HV33Z Insertion of Infusion Device into Superior Vena Cava, Percutaneous Approach (ICD-10-PCS; 2018-07-20)
PROC: B548ZZA Ultrasonography of Superior Vena Cava, Guidance (ICD-10-PCS; 2018-07-20)
PROC: 5A09357 Assistance with Respiratory Ventilation, Less than 24 Consecutive Hours, Continuous Positive Airway Pressure (ICD-10-PCS; 2018-07-20)
PROC: 5A1955Z Respiratory Ventilation, Greater than 96 Consecutive Hours (ICD-10-PCS; principal; 2018-07-21)
PROC: 0BH17EZ Insertion of Endotracheal Airway into Trachea, Via Natural or Artificial Opening (ICD-10-PCS; 2018-07-21)
PROC: 30243N1 Transfusion of Nonautologous Red Blood Cells into Central Vein, Percutaneous Approach (ICD-10-PCS; 2018-07-27)
DX: A41.51 Sepsis due to Escherichia coli [E. coli] (principal); L89.313 Pressure ulcer of right buttock, stage 3; N17.0 Acute kidney failure with tubular necrosis; R65.21 Severe sepsis with septic shock; E43 Unspecified severe protein-calorie malnutrition; N18.6 End stage renal disease; G92 Toxic encephalopathy; J15.211 Pneumonia due to Methicillin susceptible Staphylococcus aureus; J96.01 Acute respiratory failure with hypoxia; N39.0 Urinary tract infection, site not specified; E87.2 Acidosis; A04.72 Enterocolitis due to Clostridium difficile, not specified as recurrent; E87.1 Hypo-osmolality and hyponatremia; I12.0 Hypertensive chronic kidney disease with stage 5 chronic kidney disease or end stage renal disease; I69.351 Hemiplegia and hemiparesis following cerebral infarction affecting right dominant side; E87.5 Hyperkalemia; K31.84 Gastroparesis; E11.43 Type 2 diabetes mellitus with diabetic autonomic (poly)neuropathy; R79.89 Other specified abnormal findings of blood chemistry; E86.0 Dehydration; D64.9 Anemia, unspecified; E11.22 Type 2 diabetes mellitus with diabetic chronic kidney disease; S70.311A Abrasion, right thigh, initial encounter; B96.20 Unspecified Escherichia coli [E. coli] as the cause of diseases classified elsewhere; M20.41 Other hammer toe(s) (acquired), right foot; E11.621 Type 2 diabetes mellitus with foot ulcer; E78.1 Pure hyperglyceridemia; L97.519 Non-pressure chronic ulcer of other part of right foot with unspecified severity; Z16.12 Extended spectrum beta lactamase (ESBL) resistance; K21.9 Gastro-esophageal reflux disease without esophagitis; I25.10 Atherosclerotic heart disease of native coronary artery without angina pectoris; Z66 Do not resuscitate; Z87.440 Personal history of urinary (tract) infections; Z79.82 Long term (current) use of aspirin; Z79.899 Other long term (current) drug therapy; Z68.26 Body mass index [BMI] 26.0-26.9, adult; X58.XXXA Exposure to other specified factors, initial encounter; Y93.89 Activity, other specified; Y92.89 Other specified places as the place of occurrence of the external cause; Y99.8 Other external cause status
CPT/HCPCS: 36415; 36569; 36600; 51702; 71045; 76770; 76937; 80048; 80053; 80076; 80202; 81003; 82270; 82375; 82533; 82805; 82962; 83605; 83735; 83880; 83930; 83935; 84100; 84134; 84300; 84443; 84478; 84484; 85025; 85610; 86850; 86900; 86920; 87015; 87040; 87045; 87070; 87077; 87086; 87186; 87427; 87449; 87493; 92610; 93005; 93970; 94003; 94640; 94660; 94667; 96361; 96365; 96366; 96368; 96375; 97161; 99285; A4216; A6261; C1725; C9113; J0278; J0885; J1815; J1885; J2185; J2250; J2270; J2405; J2543; J2704; J2765; J3010; J3370; J3480; J3490; J7030; J7050; J7060; J7608; J7611; J7620; P9016; P9041; A4315